=== PATIENT | male | born 1970 | race Caucasian/White ===

== ENCOUNTER 2021-05-23 11:37 | Outpatient (CLI) | payer OTHER | END 2021-05-23 11:38 | disposition home or self-care (01) | LOC: RAD-FRANK 11:37 | PROVIDERS: ATTEND Nurse Practitioner Family | DX: M47.26 Other spondylosis with radiculopathy, lumbar region (principal); K80.20 Calculus of gallbladder without cholecystitis without obstruction | CPT/HCPCS: 72100 ==